=== PATIENT | female | born 1965 | race Caucasian/White ===

== ENCOUNTER 2018-05-09 07:47 | Day surgery (SDC) | payer BC ==
[~2018-05-09 07:47] MED LIST: Dexamethasone 4 MG/ML 5 ML MDV ONE; HYDROmorphone 0.5 MG/0.5 ML Syringe ONE; Ketorolac 30 MG/ML SDV ONE; Lactated Ringers 1,000 ML ONE; Lidocaine 1% 4 ML ONE; Lidocaine 1%/Sod Bicarbonate in NS 8.4% 1 ML Syringe IDERM PRN; Midazolam 1 MG/ML 2 ML SDV ONE; Ondansetron 4 MG/2 ML SDV ONE; Propofol 200 MG/20 ML SDV ONE; Rocuronium 50 MG/5 ML Vial ONE; Sodium Chloride 0.9% 10 ML Syringe FLUSH PRN; ceFAZolin 1 GM Vial ONE; fentaNYL 250 MCG/5 ML SDV ONE
--- NOTE | 2018-05-09 08:07 | PCM.PREANE ---
Preanesthetic Assessment - Procedure Proposed Procedure: lavh with bso - Anesthesia/Transfusion/Family Hx Anesthesia History: Prior Anesthesia Without Reaction Family History of Anesthesia Reaction: No Transfusion History: No Prior Transfusion(s) - Review of Systems General: No Symptoms Pulmonary: No Symptoms Cardiovascular: No Symptoms Gastrointestinal: No Symptoms Neurological: No Symptoms Other: Reports: Thyroid Problems, Depression, Anxiety - Physical Assessment NPO Status Date: 05/08/18 NPO Status Time: 20:00 (SIP With pills this am) Pulse: 63 O2 Sat by Pulse Oximetry: 97 Respiratory Rate: 16 Blood Pressure: 149/81 Temperature: 99.1 F Height: 5 ft 3 in Weight: 114 kg ASA Class: 2 Mental Status: Alert & Oriented x3 Dentition: Reports: Normal Dentition Thyro-Mental Finger Breadths: 3 Mouth Opening Finger Breadths: 3 ROM/Head Extension: Full Lungs: Clear to Auscultation, Normal Respiratory Effort Cardiovascular: Regular Rate, Regular Rhythm - Lab Values: Laboratory Last Values WBC 5.23 K/mm3 (3.98-10.04) 05/08/18 07:19 RBC 4.26 M/mm3 (3.98-5.22) 05/08/18 07:19 Hgb 13.5 gm/L (11.2-15.7) 05/08/18 07:19 Hct 41.4 % (34.1-44.9) 05/08/18 07:19 MCV 97.2 fl (79.4-94.8) H 05/08/18 07:19 MCH 31.7 pg (25.6-32.2) 05/08/18 07:19 MCHC 32.6 g/dl (32.2-35.5) 05/08/18 07:19 RDW Std Deviation 46.2 fL (36.4-46.3) 05/08/18 07:19 Plt Count 260 K/mm3 (182-369) 05/08/18 07:19 MPV 10.4 fl (9.4-12.3) 05/08/18 07:19 Neut % (Auto) 63.4 % (34.0-71.1) 05/08/18 07:19 Lymph % (Auto) 25.8 % (19.3-51.7) 05/08/18 07:19 [place] % (Auto) 7.5 % (4.7-12.5) 05/08/18 07:19 Eos % (Auto) 2.5 (0.7-5.8) 05/08/18 07:19 Baso % (Auto) 0.6 % (0.1-1.2) 05/08/18 07:19 Neut # (Auto) 3.32 K/mm3 (1.56-6.13) 05/08/18 07:19 Lymph # (Auto) 1.35 K/mm3 (1.18-3.74) 05/08/18 07:19 [place] # (Auto) 0.39 K/mm3 (0.24-0.36) H 05/08/18 07:19 Eos # (Auto) 0.13 K/mm3 (0.04-0.36) 05/08/18 07:19 Baso # (Auto) 0.03 K/mm3 (0.01-0.08) 05/08/18 07:19 Sodium 142 mEq/L (136-145) 05/08/18 07:19 Potassium 3.6 mEq/L (3.5-5.1) 05/08/18 07:19 Chloride 108 mEq/L (98-107) H 05/08/18 07:19 Carbon Dioxide 27 mEq/L (21-32) 05/08/18 07:19 Anion Gap 10.6 (5-15) 05/08/18 07:19 BUN 14 mg/dL (7-18) 05/08/18 07:19 Creatinine 0.9 mg/dL (0.55-1.02) 05/08/18 07:19 Est Cr Clr Drug Dosing TNP 05/08/18 07:19 Estimated GFR (MDRD) > 60 mL/min (>60) 05/08/18 07:19 BUN/Creatinine Ratio 15.6 (14-18) 05/08/18 07:19 Glucose 119 mg/dL (74-106) H 05/08/18 07:19 Calcium 7.8 mg/dL (8.5-10.1) L 05/08/18 07:19 Total Bilirubin 0.3 mg/dL (0.2-1.0) 05/08/18 07:19 AST 23 U/L (15-37) 05/08/18 07:19 ALT 27 U/L (14-59) 05/08/18 07:19 Alkaline Phosphatase 99 U/L (46-116) 05/08/18 07:19 Total Protein 6.6 g/dl (6.4-8.2) 05/08/18 07:19 Albumin 3.1 g/dl (3.4-5.0) L 05/08/18 07:19 Globulin 3.5 gm/dL 05/08/18 07:19 Albumin/Globulin Ratio 0.9 (1-2) L 05/08/18 07:19 HCG, Quant 2.0 mIU/mL 05/08/18 07:19 Urine Color Yellow (Yellow) 05/08/18 07:19 Urine Appearance Clear (Clear) 05/08/18 07:19 Urine pH 6.0 (5.0-8.0) 05/08/18 07:19 Ur Specific [place] 1.020 (1.005-1.030) 05/08/18 07:19 Urine Protein Negative (Negative) 05/08/18 07:19 Urine Glucose (UA) Negative (Negative) 05/08/18 07:19 Urine Ketones Negative (Negative) 05/08/18 07:19 Urine Occult Blood Negative (Negative) 05/08/18 07:19 Urine Nitrite Negative (Negative) 05/08/18 07:19 Urine Bilirubin Negative (Negative) 05/08/18 07:19 Urine Urobilinogen 0.2 (0.2-1.0) 05/08/18 07:19 Ur Leukocyte Esterase Negative (Negative) 05/08/18 07:19 Blood Type O POSITIVE 05/08/18 07:19 Gel Antibody Screen Negative 05/08/18 07:19 - Allergies Allergies/Adverse Reactions: Allergies Allergy/AdvReac Type Severity Reaction Status Date / Time No Known Allergies Allergy Verified 05/08/18 13:26 - Blood Blood Available: No - Acknowledgements Anesthesia Type Planned: General Anesthesia Pt an Appropriate Candidate for the Planned Anesthesia: Yes Alternatives and Risks of Anesthesia Discussed w Pt/Guardian: Yes Pt/Guardian Understands and Agrees with Anesthesia Plan: Yes PreAnesthesia Questionnaire HEENT History: Reports: Other (See Below) Cardiovascular History: Reports: None Respiratory History: Reports: None Gastrointestinal History: Reports: None Genitourinary History: Reports: Renal Calculus MEDICAL RECORD TECHNICIAN History: Reports: , Spontaneous , Other (See Below) Other OB/BYN History: menorrhagia Musculoskeletal History: Reports: Arthritis, Osteoarthritis Other Musculoskeletal History: R knee pain, carpal tunnel surgery bilateral, bunionectomy Neurological History: Reports: Migraines (headaches but not migraines) Psychiatric History: Reports: Anxiety, Depression Endocrine/Metabolic History: Reports: Hypothyroidism, Obesity/BMI 30+, Vitamin D Deficiency Hematologic History: Reports: Anemia, Iron Deficiency Immunologic History: Reports: None Oncologic (Cancer) History: Reports: None Dermatologic History: Reports: None - Past Surgical History Head Surgeries/Procedures: Reports: None HEENT Surgical History: Reports: Adenoidectomy, Tonsillectomy Cardiovascular Surgical History: Reports: None Respiratory Surgical History: Reports: None GI Surgical History: Reports: Bariatric Procedure, Colonoscopy, Hernia Repair/ Other Female Surgical History: Reports: Section, Tubal Ligation Endocrine Surgical History: Reports: None Neurological Surgical History: Reports: None Musculoskeletal Surgical History: Reports: Carpal Tunnel, Other (See Below) ( bunionectomy) Oncologic Surgical History: Reports: None Dermatological Surgical History: Reports: None - SUBSTANCE USE Smoking Status *Q: Former Smoker (quit 20 years ago) Tobacco Use Within Last Twelve Months: No Second Hand Smoke Exposure: Yes Days Per Week of Alcohol Use: 1 Number of Drinks Per Day: 2 Total Drinks Per Week: 2 Recreational Drug Use History: No - HOME MEDS Home Medications: Home Meds Ascorbic Acid [Vitamin C] 1,000 mg PO DAILY 03/15/16 [History] Calcium Carbonate [Tums Extra Strength] 2 tab PO DAILY 03/15/16 [History] Cholecalciferol (Vitamin D3) [Vitamin D3] 8,000 unit PO DAILY 03/15/16 [History] Cyanocobalamin/FA/Pyridoxine [Folplex 2.2] 1 tab PO DAILY 03/15/16 [History] Escitalopram Oxalate [Lexapro] 20 mg PO DAILY 03/15/16 [History] Gluc/MSM/C/[place] [Joint Support Complex Softgel] 1 tab PO DAILY [History] Levothyroxine [Synthroid] 88 mcg PO DAILY 03/15/16 [History] Iron,Carbonyl/Ascorbic Acid [Iron 100-Vitamin C Tablet] 1 tab PO BID 05/08/18 [ History] Pediatric Multivit Comb. No.49 [Flintstonesther Gummies] 1 tab PO DAILY 05/08/18 [ History] buPROPion HCl [Wellbutrin Xl] 300 mg PO DAILY 05/08/18 [History] busPIRone [Buspar] 5 mg PO BID 05/08/18 [History] - CURRENT (IN HOUSE) MEDS Current Meds: Current Medications Lactated Ringer's (Ringers, Lactated) 1,000 mls @ 125 mls/hr IV ASDIRECTED ART Stop: 05/09/18 23:00 Lidocaine/Sodium Bicarbonate (Buffered Lidocaine 1% In Ns 8.4%) 0.25 ml IDERM ONETIME PRN PRN Reason: Prior to IV Start Stop: 05/09/18 18:00 Sodium Chloride (Saline Flush) 10 ml FLUSH ASDIRECTED PRN PRN Reason: Keep Vein Open Stop: 05/09/18 18:00 Discontinued Medications Cefazolin Sodium (Ancef) Confirm Administered Dose 2 gm .ROUTE .STK-MED ONE Stop: 05/09/18 07:15 Dexamethasone (Dexamethasone) Confirm Administered Dose 20 mg .ROUTE .STK-MED ONE Stop: 05/09/18 07:15 Fentanyl (Sublimaze) Confirm Administered Dose 250 mcg .ROUTE .STK-MED ONE Stop: 05/09/18 07:16 Hydromorphone HCl (Dilaudid) Confirm Administered Dose 0.5 mg .ROUTE .STK-MED ONE Stop: 05/09/18 07:15 Lidocaine HCl (Xylocaine-Mpf 1%) Confirm Administered Dose 4 mls @ as directed .ROUTE .STK-MED ONE Stop: 05/09/18 07:15 Lactated Ringer's (Ringers, Lactated) Confirm Administered Dose 1,000 mls @ as directed .ROUTE .STK-MED ONE Stop: 05/09/18 07:15 Ketorolac Tromethamine (Toradol) Confirm Administered Dose 30 mg .ROUTE .STK- MED ONE Stop: 05/09/18 07:15 Midazolam HCl (Versed 1 Mg/Ml) Confirm Administered Dose 2 mg .ROUTE .STK-MED ONE Stop: 05/09/18 07:16 Ondansetron HCl (Zofran) Confirm Administered Dose 4 mg .ROUTE .STK-MED ONE Stop: 05/09/18 07:15 Propofol (Diprivan 20 Ml) Confirm Administered Dose 200 mg .ROUTE .STK-MED ONE Stop: 05/09/18 07:15 Rocuronium [place] (Zemuron) Confirm Administered Dose 50 mg .ROUTE .STK-MED ONE Stop: 05/09/18 07:15
[2018-05-09] MEDS: Lactated Ringers 1,000 ML IV SCH ×2 (08:15→11:51)
[2018-05-09] MEDS ORDERED: Lidocaine 1% with EPINEPHrine 1:100,000 20 ML MDV ONE (09:05)
[2018-05-09] MEDS ORDERED: Bupivacaine 0.5% 30 ML SDV ONE (09:05)
[2018-05-09] MEDS ORDERED: Sodium Chloride 0.9% 50 ML SDV ONE (09:05)
[2018-05-09] MEDS ORDERED: diphenhydrAMINE 50 MG/ML SDV IVPUSH PRN (10:00)
[2018-05-09] MEDS ORDERED: Midazolam 1 MG/ML 2 ML SDV IVPUSH PRN (10:00)
[2018-05-09] MEDS ORDERED: Albuterol 0.083% 2.5 MG/3 ML Neb Soln NEB PRN (10:00)
[2018-05-09] MEDS ORDERED: HYDROmorphone 0.5 MG/0.5 ML Syringe IVPUSH PRN (10:00)
[2018-05-09] MEDS ORDERED: Ondansetron 4 MG/2 ML SDV IVPUSH PRN ×2 (10:00→12:15)
[2018-05-09] MEDS ORDERED: fentaNYL 100 MCG/2 ML SDV IVPUSH PRN (10:00)
[2018-05-09] MEDS ORDERED: Neostigmine Methylsulfate 1 MG/ML 5 ML Syringe ONE (10:17)
[2018-05-09] MEDS ORDERED: Acetaminophen/oxyCODONE 325-5 MG Tab PO PRN ×2 (12:15→14:45)
--- NOTE | 2018-05-09 12:20 | PCM.POSTAN ---
POST ANESTHESIA ASSESSMENT - MENTAL STATUS Mental Status: Alert - VITAL SIGNS Pulse Rate: 98 SaO2: 98 (2 LPM nasal cannula) Resp Rate: 20 Blood Pressure: 131/83 Temperature: 36.6 C - RESPIRATORY Respiratory Status: Respiratory Rate WNL, Airway Patent, O2 Saturation Stable, Supplemental Oxygen - CARDIOVASCULAR CV Status: Pulse Rate WNL, Blood Pressure Stable - GASTROINTESTINAL GI Status: No Symptoms - POST OP HYDRATION Hydration Status: Adequate & Stable
--- NOTE | 2018-05-09 12:25 | PCM.OPNOTE ---
- General Post-Op/Procedure Note Date of Surgery/Procedure: 05/09/18 Operative Procedure(s): Laparoscopic assisted total vaginal hysterectomy with bilateral salpingo-oophorectomy Findings: Obesity. Minimal scarring secondary to tubal ligation. Uterus is upper limits normal size. Ovaries looked functional and normal. Minimal descensus on vaginal exam. Pre Op Diagnosis: 1. Abnormal uterine bleeding. 2. Simple hyperplasiabenign Post-Op Diagnosis: Same Anesthesia Technique: General ET Tube Other Anesthesia Type: Marcaine 0.5%locally, lidocaine quarter percent with epinephrinelocal Primary Surgeon: Junior Wayne Secondary Surgeon: Bashir Echevarria Anesthesia Provider: Tessa Lazaro Reason Steam Shovelman Was Necessary: Retraction, assistance, quality of care, patient safety Role of Steam Shovelman: Retraction, assistance Pathology: Uterus tubes and ovaries as one specimen Fluid Replacement, Intraop: 1,200 Output, Urine Amount: 225 EBL in mLs: 75 Drain/Tube Comments:: Indwelling bladder catheter during surgery only Condition: Good Free Text/Narrative:: Surgery duration: 127 minutes The patient was taken to the operating room placed in supine position on the operating table. She received 2 g of Ancef preoperatively for infection prophylaxis. She had signed consent previously. After adequate anesthesia patient was placed in a dorsal lithotomy position. It should be noted she had sequential compression stockings in place for DVT prophylaxis. A uterine manipulator was placed as was an latex free indwelling bladder catheter. This was done after adequate prepping and draping. The patient was placed in supine position and 3 laparoscopic port sites were developed. Marcaine 0.5% approximately 3-5 mL was injected at each site. Verres needle was placed and pneumoperitoneum was achieved with 3 L of CO2. Infraumbilical, suprapubic and 2 lateral port sites were developed. Under laparoscopic guidance the upper portion of the hysterectomy was performed. The right infundibulopelvic ligament was elevated and crossclamped using the endoseal computerized cautery device. The round ligament was taken down to the broad ligament. At this time attention was turned to the left side and the left infundibulopelvic ligament and the triple ligament were then taken down in a similar fashion. Broad ligament was taken down to the area of the uterine vasculature. Uterine vasculature was developed in the usual fashion using the cautery system. Both uterine arteries were identified and developed. Vaginal approach was then undertaken. The patient was placed in the dorsal lithotomy position and a weighted speculum was placed in the vagina. The cervix was injected with lidocaine quarter percent with epinephrine 20 mL total. A full circumference incision was made through the epithelium around the cervix. Posterior cul-de-sac was entered without problems. The left uterosacral ligament and then the right uterosacral were taken down using the Enseal vessel closure system. The cardinal ligament and what remained of the uterine vascular vessels and cervical branches of the vessels were managed with the Enseal vessel closure system on each side. Anterior cul-de-sac was then entered and the remaining portion of broad ligament on the right side and a small portion of broad ligament remaining on the left side were then developed in the usual fashion. Uterus was then removed. At this point the uterus was completely removed and sent as specimen. Both ovaries and fallopian tubes were removed using the vessel cautery system. The vaginal cuff was then run with a locked running suture of 0 Monocryl from the 2 o'clock position to the 10 o'clock position. The vagina was closed with a running locked suture of 0 Monocryl. Hemostasis was confirmed this time and no bleeding was noted. Laparoscopy was then performed to ensure hemostasis. Pneumoperitoneum was reestablished and the laparoscope was placed. The pelvis was found to be hemostatically intact. There was no evidence of any bowel adhesion to the vaginal cuff area noted. The sleeves were removed under direct visualization and the upper sleeve was removed after reversal of the pneumoperitoneum. Each of these sites were closed with a single interrupted suture of 4-0 Monocryl. They were further approximated with Dermabond skin glue. At this point the patient was awakened from general endotracheal anesthesia. The Urias catheter had been removed by this time. She is discharged from the operating room in good condition.
--- NOTE | 2018-05-09 14:44 | PCM48HPAN ---
Post Anesthesia Note - EVALUATION WITHIN 48HRS OF ANESTHETIC Vital Signs in Normal Range: Yes Patient Participated in Evaluation: Yes Respiratory Function Stable: Yes Airway Patent: Yes Cardiovascular Function Stable: Yes Hydration Status Stable: Yes Pain Control Satisfactory: Yes Nausea and Vomiting Control Satisfactory: Yes Mental Status Recovered: Yes Pulse Rate: 84 SaO2: 94 Resp Rate: 16 Temperature: 97.9 F Blood Pressure: 127/64
[2018-05-09 15:32] VITALS: BP 123/77
== END 2018-05-09 15:20 | disposition home or self-care (01) ==
LOC: JD.SDS 07:47
PROVIDERS: ATTEND Obstetrics & Gynecology
DX: N80.0 Endometriosis of uterus (principal); D25.9 Leiomyoma of uterus, unspecified; E66.9 Obesity, unspecified; Z68.42 Body mass index [BMI] 45.0-49.9, adult; E03.9 Hypothyroidism, unspecified; F41.8 Other specified anxiety disorders; E55.9 Vitamin D deficiency, unspecified; Z87.891 Personal history of nicotine dependence; Z79.899 Other long term (current) drug therapy; Z98.84 Bariatric surgery status; Z98.51 Tubal ligation status
CPT/HCPCS: 36415; 58552; 80053; 81003; 84702; 85025; 86850; 86900; 86901; A9270; J0690; J1100; J1170; J1885; J2001; J2250; J2405; J2710; J3010; J7120; J2704

== ENCOUNTER 2022-11-25 08:41 | Day surgery (SDC) | payer BC ==
[~2022-11-25 08:41] MED LIST changes: -Dexamethasone 4 MG/ML 5 ML MDV ONE; -HYDROmorphone 0.5 MG/0.5 ML Syringe ONE; -Ketorolac 30 MG/ML SDV ONE; +Lactated Ringers 1,000 ML IV SCH; -Lactated Ringers 1,000 ML ONE; -Lidocaine 1% 4 ML ONE; -Midazolam 1 MG/ML 2 ML SDV ONE; -Ondansetron 4 MG/2 ML SDV ONE; -Propofol 200 MG/20 ML SDV ONE; -Rocuronium 50 MG/5 ML Vial ONE; +Sodium Chloride 0.9% 10 ML Syringe FLUSH SCH; -ceFAZolin 1 GM Vial ONE; -fentaNYL 250 MCG/5 ML SDV ONE
[2022-11-25] MEDS ORDERED: Bupivacaine 0.5%/EPINEPHrine 1:200,000 50 ML MDV ONE (09:54)
[2022-11-25] MEDS ORDERED: Lidocaine 1% 4 ML ONE (09:58)
[2022-11-25] MEDS ORDERED: Midazolam 1 MG/ML 2 ML SDV ONE (09:58)
[2022-11-25] MEDS ORDERED: Propofol 200 MG/20 ML SDV ONE (09:58)
[2022-11-25] MEDS ORDERED: fentaNYL 100 MCG/2 ML SDV ONE ×2 (09:58→10:47)
[2022-11-25] MEDS ORDERED: ceFAZolin 2 GM Vial ONE (10:01)
[2022-11-25] MEDS ORDERED: Lactated Ringers 1,000 ML ONE (10:38)
[2022-11-25] MEDS ORDERED: Ondansetron 4 MG/2 ML SDV ONE (11:15)
[2022-11-25] MEDS ORDERED: Ketorolac 30 MG/ML SDV ONE (11:15)
[2022-11-25 12:56] VITALS: BP 114/78; PULSE 72
== END 2022-11-25 12:40 | disposition home or self-care (01) ==
LOC: JD.SDS 08:41
PROVIDERS: ATTEND Surgery
DX: D22.39 Melanocytic nevi of other parts of face (principal); D17.21 Benign lipomatous neoplasm of skin and subcutaneous tissue of right arm; D64.9 Anemia, unspecified; F41.9 Anxiety disorder, unspecified; M19.90 Unspecified osteoarthritis, unspecified site; F32.A Depression, unspecified; E03.9 Hypothyroidism, unspecified; E88.09 Other disorders of plasma-protein metabolism, not elsewhere classified; E55.9 Vitamin D deficiency, unspecified; E66.9 Obesity, unspecified; Z79.899 Other long term (current) drug therapy; Z79.890 Hormone replacement therapy; Z98.890 Other specified postprocedural states; Z87.891 Personal history of nicotine dependence; Z68.42 Body mass index [BMI] 45.0-49.9, adult; Z90.49 Acquired absence of other specified parts of digestive tract; Z90.710 Acquired absence of both cervix and uterus
CPT/HCPCS: 11104; 25071; 25075; J0690; J1885; J2250; J2405; J2704; J3010; J3490; J7120; 00400